=== PATIENT | female | born 1945 | race Caucasian/White ===

== ENCOUNTER 2017-10-02 17:01 | Emergency (ER) | payer MEDICARE, OTHER ==
[2017-10-02] MEDS ORDERED: Albuterol/Ipratropium NEB.SOL* Albuterol 2.5 MG/Ipratropium 0.5 MG 3 ML INH ONE (17:35)
[2017-10-02] MEDS ORDERED: Acetaminophen TAB* 325 MG PO ONE (17:35)
--- NOTE | 2017-10-02 17:46 | ED ---
HPI Cardiac - HPI Summary HPI Summary: Pt here w/ flu-like sx x 5 days. Has had sneezing, coughing, ST, rhinorrhea and ear fullness. Developed fever today. Chest feels tight and heavy since cough has perissted. She has asthma which is typically well controlled. Has tried her flovent but has not tried albuterol yet. Also reports she took 2 advil this morning but fever didn't present until recently. Feels wiped out in general. No baljit SOB but coughing easily which disrupts breathing. Had influenza vaccine this year and has had pneumonia vaccine in the past. Reports she doesn't typically get sick so not sure why she feels this way. No known sick contacts. - History of Current Complaint Chief Complaint: EDGeneral Stated Complaint: COUGH/FEVER Time Seen by Provider: 10/02/17 17:08 Hx Obtained From: Patient, Family/Mincemeat Maker - Pain Intensity: 0 - Allergy/Home Medications Allergies/Adverse Reactions: Allergies Allergy/AdvReac Type Severity Reaction Status Date / Time Penicillins Allergy Rash Verified 12/17/13 14:51 PMH/Surg Hx/FS Hx/Imm Hx Previously Healthy: Yes Endocrine/Hematology History: Denies: Hx Anticoagulant Therapy, Hx Blood Disorders, Hx Thyroid Disease, Hx Anemia, Autoimmune Disease Cardiovascular History: Denies: Hx Congestive Heart Failure, Hx Myocardial Infarction Respiratory History: Reports: Hx Asthma Denies: Hx Chronic Obstructive Pulmonary Disease (COPD) - h/o smoking - quit in GI History: Denies: Hx Cirrhosis, Hx Gastroesophageal Reflux Disease - Cancer History Hx Chemotherapy: No Hx Radiation Therapy: No - Surgical History Surgery Procedure, Year, and Place: HYSTERECTOMY 2011 - Immunization History Immunizations Up to Date: Yes Infectious Disease History: No Infectious Disease History: Denies: Traveled Outside the [place] in Last 30 Days - Family History Known Family History: Positive: None - Social History Occupation: Retired Lives: With Family Alcohol Use: None Hx Substance Use: No Substance Use Type: Reports: None Hx Tobacco Use: Yes - not currently Smoking Status (MU): Former Smoker Review of Systems Positive: Fever, Fatigue Eyes: Negative Negative: Drainage, Erythema Positive: Sore Throat, Ear Ache, Nasal Discharge Cardiovascular: Negative Negative: Palpitations, Chest Pain Positive: Cough Gastrointestinal: Negative Negative: Abdominal Pain, Vomiting, Diarrhea, Nausea Positive: no symptoms reported Negative: Decreased ROM, Edema Skin: Negative Positive: Headache Psychological: Normal All Other Systems Reviewed And Are Negative: Yes Physical Exam Triage Information Reviewed: Yes Vital Signs On Initial Exam: Initial Vitals Temp Pulse Resp BP Pulse Ox 102 F 63 20 149/78 93 10/02/17 17:03 10/02/17 17:03 10/02/17 17:03 10/02/17 17:03 10/02/17 17:03 Vital Signs Reviewed: Yes Appearance: Positive: Well-Nourished, Ill-Appearing - appears mildly fatigued Skin: Positive: Warm, Dry Head/Face: Positive: Normal Head/Face Inspection Eyes: Positive: Normal, EOMI, Conjunctiva Clear. Negative: Conjunctiva Inflammed, Discharge ENT: Positive: Normal ENT inspection, Hearing grossly normal, Pharyngeal erythema - no edema,cobblestoning, Nasal congestion - mild, TMs normal. Negative: Nasal drainage, Tonsillar swelling, Tonsillar exudate Neck: Positive: Supple, Nontender, No Lymphadenopathy Respiratory/Lung Sounds: Positive: Rales, Rhonchi, Wheezes - diffuse -. Negative: Unable to speak in full sentences Cardiovascular: Positive: Normal, RRR, S1, S2 Abdomen Description: Positive: Nontender, No Organomegaly, Soft Bowel Sounds: Positive: Present Musculoskeletal: Positive: Normal, Strength/ROM Intact Neurological: Positive: Normal, Sensory/Motor Intact, Alert, Oriented to Person Place, Time, CN Intact II-III Psychiatric: Positive: Normal - Minier Coma Scale Coma Scale Total: 15 Diagnostics - Vital Signs Vital Signs Temp Pulse Resp BP Pulse Ox 10/02/17 17:25 99.1 F 10/02/17 17:03 102 F 63 20 149/78 93 - Laboratory Lab Statement: Any lab studies that have been ordered have been reviewed, and results considered in the medical decision making process. Re-Evaluation - Re-Evaluation First Eval Change: Improved - pt reports breathing has improved, especially in her upper airway. She is coughing up sputum. Breathing easily, coughing less and pulse ox remains above 95% on room air. She feels jittery after tx but no tachycardia. Chest still has wheezing throughout so discussed starting steroid in conjunction w/ her bronchodilator - she does not want to start this - understands risks and benefits. Also offered a xoponex neb tx to aid in further bronchodilating w/o jittery sensation - she declines this as well. Agrees to use albuterol HFA at home q 4 hours and flovent q 12 hours and NOT to exceed. Explained if she feels worse, needs to return to ED. She agrees and will start zithromax as well. is present and agrees w/ plan. Disposition - Course Course Of Treatment: Pt presents w/ general sx of URI, cough, fatigue. Flu neg. Chest auscultation + for wheezing, rhonchi - pt clinically improved w/ duoneb however wheezing still present. Discussed options seen in eval. Vitals stable. D /c'd home w/ danger s/sx. Discussed w/ Dr. Garcia. - Diagnoses Provider Diagnoses: Bronchitis, Asthma exacerbation Discharge - Discharge Plan Condition: Stable Disposition: HOME Prescriptions: Azithromycin TAB* [Zithromax TAB (Z-GEMMA) 250 mg #6 tabs] 250 mg PO DAILY #4 tab Patient Education Materials: Acute Bronchitis (ED), Bronchospasm (ED) Referrals: Flora Okeefe MD [Primary Care Provider] - Additional Instructions: Rest, stay hydrated and avoid chemical scents/aerosals/smoke/etc. You may try a humidifier and keep air in house at 68F or less. Use albuterol inhaler 2 puffs every 4 hours for the next 24 hours - if breathing is easier after this time, you may reduce to every 6 hours, then every 8 hours, then every 12 hours then as needed only Continue flovent 2 time a day only - do not exceed this dosing. If you are not getting relief with albuterol as directed and flovent as directed, or you develop headache, vomiting, weakness, syncope, abdominal pain, diarrhea, chest pain or shortness of breath, return to the ED. Complete antibiotics as directed It was recommended that you start a steroid to aid in reducing inflammation of your airway which you declined. If you change your mind, please call however if you are worse, it may be recommended that you seek medical attention.
--- NOTE | 2017-10-02 18:21 | RAD ---
INDICATION: Cough, wheezing and fever. COMPARISON: Comparison is made with a prior chest x-ray study from September 09, 2010. TECHNIQUE: Dual-energy PA and lateral views of the chest were obtained. FINDINGS: The heart is within normal limits in size. Mediastinal and hilar contours appear within normal limits. The lungs are clear. No pleural effusion is present. IMPRESSION: NO EVIDENCE FOR ACTIVE CARDIOPULMONARY DISEASE.
[2017-10-02] MEDS ORDERED: Azithromycin TAB* 250 MG PO ONE (18:50)
[2017-10-02 19:19] VITALS: BP 154/64
== END 2017-10-02 19:15 | disposition home or self-care (01) ==
LOC: ED 17:01
DX: J45.901 Unspecified asthma with (acute) exacerbation (principal); J40 Bronchitis, not specified as acute or chronic; Z87.891 Personal history of nicotine dependence
CPT/HCPCS: 71020; 87502; 94640; 99283; A9270-GY

== ENCOUNTER 2019-04-24 15:13 | Emergency (ER) | payer MEDICARE, OTHER ==
[2019-04-24] MEDS ORDERED: Ondansetron ODT TAB* 4 MG PO ONE (15:37)
[2019-04-24] MEDS ORDERED: NS 0.9% 1000 ML** 1,000 ML IV ONE (16:50)
--- NOTE | 2019-04-24 16:54 | ED ---
Head Injury - HPI Summary HPI Summary: 73-year-old female who presents after a ground-level fall. Patient was walking in the kitchen and tripped on cut out stitcher struck left side of her face on the ground. No LOC but reports lightheaded afterwards. Reporting a 6 out of 10 and tension-like headache that radiates behind her eyes. Associated with nausea. No blurred vision or photophobia. Also has a superficial laceration to her right forearm, up-to-date on her tetanus. Patient is not on blood thinners. - History Of Current Complaint Chief Complaint: UCHeadInjury Stated Complaint: LACERATION FACE Time Seen by Provider: 04/24/19 15:28 Pain Intensity: 3 - Allergies/Home Medications Allergies/Adverse Reactions: Allergies Allergy/AdvReac Type Severity Reaction Status Date / Time Penicillins Allergy Rash Verified 04/24/19 15:26 enviromental Allergy Eyes Uncoded 04/24/19 15:26 Itchy/Swollen/Red/Watery Home Medications: Home Medications Letrozole (NF) [Femara (NF)] 2.5 mg PO DAILY 04/24/19 [History Confirmed ] PMH/Surg Hx/FS Hx/Imm Hx Endocrine/Hematology History: Denies: Hx Anticoagulant Therapy, Hx Blood Disorders, Hx Diabetes, Hx Thyroid Disease, Hx Anemia Cardiovascular History: Denies: Hx Congestive Heart Failure, Hx Hypertension, Hx Myocardial Infarction, Hx Pacemaker/ICD Respiratory History: Reports: Hx Asthma Denies: Hx Chronic Obstructive Pulmonary Disease (COPD) - h/o smoking - quit in GI History: Denies: Hx Cirrhosis, Hx Gastroesophageal Reflux Disease History: Denies: Hx Renal Disease Sensory History: Denies: Hx Hearing Aid Psychiatric History: Denies: Hx Panic Disorder - Cancer History Cancer Type, 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 [place] [facility] [place]PLAC[place]. C SECTION Infectious Disease History: No Infectious Disease History: Denies: Traveled Outside the [place] in Last 30 Days - Family History Known Family History: Positive: None - Social History Occupation: Retired Lives: With Family Alcohol Use: Daily Alcohol Amount: 2-3 week Hx Substance Use: No Substance Use Type: Reports: None Hx Tobacco Use: Yes - not currently Smoking Status (MU): Former Smoker Type: Cigarettes Have You Smoked in the Last Year: No Review of Systems Negative: Blurred Vision Cardiovascular: Negative Respiratory: Negative Positive: Nausea Genitourinary: Negative Musculoskeletal: Negative Positive: Other - laceration Positive: Headache All Other Systems Reviewed And Are Negative: Yes Physical Exam - Summary Physical Exam Summary: Constitutional: Well-developed, Well-nourished, Alert, Cooperative Skin: 4 cm area of avulsion to the right forearm, superficial lacerations to the left eyelid HENT: Normocephalic, left periorbital ecchymosis with superficial lacerations to the medial aspect of the eyelid as well as infraorbital area. Midface stable , Dentition intact Eyes: EOM normal, PERRL. vision intact bilaterally no blurred vision. L subconjunctival hemorrhage Neck: Trachea is midline. No stridor; No JVD; No step off; No posterior cervical spine tenderness Cardio: Rhythm regular, rate normal Heart sounds normal; Intact distal pulses; The pedal pulses are 2+ and symmetric. Radial pulses are 2+ and symmetric. Pulmonary/Chest wall: Effort normal; Breath sounds normal; Equal chest rise; No flail segment; No rib tenderness; No sternal tenderness Abd: Soft, Appearance normal. No distension; No tenderness Musculoskeletal: Full ROM and no tenderness at hips, ankles, shoulders, elbows and knees; No joint swelling; No vertebral body tenderness; No paraspinal tenderness; No step off or deformity of the spine; Pelvis is stable to lateral compression and rock Neuro: Alert, Oriented x3, GCS 15. Strength 5/5 all extremities. Psych: Mood and affect Normal Vital Signs On Initial Exam: Initial Vitals Temp Pulse Resp BP Pulse Ox 98.2 F 69 20 195/94 95 04/24/19 15:20 04/24/19 15:20 04/24/19 15:20 04/24/19 15:20 04/24/19 15:20 Diagnostics - Vital Signs Vital Signs Temp Pulse Resp BP Pulse Ox 04/24/19 15:20 98.2 F 69 20 195/94 95 - Laboratory Lab Statement: Any lab studies that have been ordered have been reviewed, and results considered in the medical decision making process. - CT No standard instances CT Interpretation Completed By: Radiologist Summary of CT Findings: Patient Name: NORA LOPEZ Medical Record#: [id number]. Ordering Physician: Stacia Root MD Acct.#: [id number]. : 1945 Age: 73 Sex: F Location: [facility]. Exam Date: 04/24/191535 ADM Status: REG ER. Order Information: CT BRAIN WO. Accession Number: [id number]. CPT: 33142. Indication: Trauma. LEFT eye bruising and bleeding. Comparison: Maxillofacial CT of the same date. Technique: #. Noncontrast CT vertex of skull through foramen magnum. #. CT face. Multiplanar reformation. Report: LEFT proptosis and severe preseptal and postseptal edema/infiltrative hematoma. The LEFT ocular globe is symmetric with the RIGHT. Fracture of the LEFT orbital roof with. up to 0.4 cm cephalad displacement into the anterior cranial fossa no additional fracture. of the LEFT orbital margin is evident. Associated very small volume of LEFT anterior. cranial fossa extra-axial hematoma likely a combination of epidural, subdural as well as a. small amount of subarachnoid hematoma. Potential nondisplaced fracture involving the lateral wall of the LEFT maxillary sinus. Bilateral maxillary sinus mucus retention cysts or polyps. No compelling fluid levels. evident. Intact zygomatic arches, lamina papyracea, nasal bones, base of the maxilla, pterygoid. plates, and mandible. No additional intra or extra-axial intracranial hemorrhage evident. Unremarkable cerebral. sulci, ventricles, and basal cisterns. Negative for mcadams matter white matter obscuration. or mass effect. No fracture of the calvarium evident. Clear mastoid air spaces. Aside from the preseptal. region of the LEFT eye the scalp is unremarkable. IMPRESSION: #. LEFT proptosis and severe preseptal and postseptal edema/infiltrative hematoma. The. LEFT ocular globe is symmetric with the RIGHT without suggestion of rupture. #. Fracture of the LEFT orbital roof with up to 0.4 cm cephalad displacement into the. anterior cranial fossa no additional fracture of the LEFT orbital margin is evident. #. Associated very small volume of LEFT anterior cranial fossa extra- axial hematoma likely. a combination of epidural, subdural as well as a small amount of subarachnoid hematoma. #. No additional intra or extra-axial intracranial hemorrhage evident. Results discussed with Dr. Root 2018 4:45 PM EDT. . <Electronically signed by Cortes Jernigan MD in [place]> 04/24/19 1646. Dictated By: Cortes Jernigan MD. Dictated Date/Time: 04/24/19 1646. Transcribed Date/Time: 04/24/19 1623. This report is only to be considered final once signed by the Provider(s) as displayed in the "<Electronically Signed by >" field (s). Absence of a. signature indicates the report is in a draft status and still needs to be finalized. In the event this document was created by someone other than the. signing Provider, the individual initiating the document will be listed in the "Entered by:" or "Dictated by:" clemons. Patient Name: NORA LOPEZ Medical Record#: [id number]. Ordering Physician: Stacia Root MD Acct.#: [id number]. : 1945 Age: 73 Sex: F Location: [facility]. Exam Date: 04/24/191535 ADM Status: REG ER. Order Information: CT SPINE CERVICAL W/O. Accession Number: [id number]. CPT: 41252. INDICATION: Trauma. COMPARISON: There are no prior studies available for comparison. TECHNIQUE: Contiguous axial sections were obtained from the skull base through the T2. vertebra. Images were reconstructed in the sagittal and coronal planes. FINDINGS: VERTEBRA: There is straightening and reversal of the normal cervical lordosis. No. prevertebral soft tissue swelling or fracture is seen. C2-C3: There is mild posterior uncinate process spurring and hypertrophic changes within. the facet joints. No spinal canal narrowing is seen. There is mild to moderate neural. foraminal narrowing on the right side. C3-C4: There is mild posterior uncinate process spurring. No spinal canal narrowing is. seen. There is mild to moderate bilateral neural foraminal narrowing. C4-C5: There is mild posterior uncinate process spurring. No spinal canal narrowing is. present. There is mild bilateral neural foraminal narrowing. C5-C6: There is mild posterior uncinate process spurring associated with a small central. disc protrusion. There is mild spinal canal narrowing. There is mild to moderate bilateral. neural foraminal narrowing. C6 -C7: There is mild posterior uncinate process spurring. No significant spinal canal. narrowing is present. There is mild to moderate neural foraminal narrowing on the left. side. LUNG APICES: The lung apices appear clear. IMPRESSION: 1. STRAIGHTENING AND REVERSAL OF THE NORMAL CERVICAL LORDOSIS, NO EVIDENCE FOR FRACTURE. 2. MILD TO MODERATE CERVICAL SPONDYLOSIS DESCRIBED. . <Electronically signed by Uvaldo Stack MD in [place]> 04/24/191635. Dictated By: Uvaldo Stack MD. Dictated Date/Time: 04/24/191635. Transcribed Date/Time: 04/24/191625. Copy to: This report is only to be considered final once signed by the Provider(s) as displayed in the "<Electronically Signed by >" field (s). Absence of a. signature indicates the report is in a draft status and still needs to be finalized. In the event this document was created by someone other than the. signing Provider, the individual initiating the document will be listed in the "Entered by:" or "Dictated by:" clemons. 1 of 2. Patient Name: NORA LOPEZ Medical Record#: [id number]. Ordering Physician: Stacia Root MD Acct.#: [id number]. : 1945 Age: 73 Sex: F Location: [facility]. Exam Date: 04/24/19 153 ADM Status: REG ER. Order Information: CT MAXILLOFACIAL W/O. Accession Number: [id number]. CPT: 26268. Indication: Trauma. LEFT eye bruising and bleeding. Comparison: Maxillofacial CT of the same date. Technique: #. Noncontrast CT vertex of skull through foramen magnum. #. CT face. Multiplanar reformation. Report: LEFT proptosis and severe preseptal and postseptal edema/infiltrative hematoma. The LEFT ocular globe is symmetric with the RIGHT. Fracture of the LEFT orbital roof with. up to 0.4 cm cephalad displacement into the anterior cranial fossa no additional fracture. of the LEFT orbital margin is evident. Associated very small volume of LEFT anterior. cranial fossa extra-axial hematoma likely a combination of epidural, subdural as well as a. small amount of subarachnoid hematoma. Potential nondisplaced fracture involving the lateral wall of the LEFT maxillary sinus. Bilateral maxillary sinus mucus retention cysts or polyps. No compelling fluid levels. evident. Intact zygomatic arches, lamina papyracea, nasal bones, base of the maxilla, pterygoid. plates, and mandible. No additional intra or extra-axial intracranial hemorrhage evident. Unremarkable cerebral. sulci, ventricles, and basal cisterns. Negative for mcadams matter white matter obscuration. or mass effect. No fracture of the calvarium evident. Clear mastoid air spaces. Aside from the preseptal. region of the LEFT eye the scalp is unremarkable. IMPRESSION: #. LEFT proptosis and severe preseptal and postseptal edema/infiltrative hematoma. The. LEFT ocular globe is symmetric with the RIGHT without suggestion of rupture. #. Fracture of the LEFT orbital roof with up to 0.4 cm cephalad displacement into the. anterior cranial fossa no additional fracture of the LEFT orbital margin is evident. #. Associated very small volume of LEFT anterior cranial fossa extra-axial hematoma likely. a combination of epidural, subdural as well as a small amount of subarachnoid hematoma. #. No additional intra or extra-axial intracranial hemorrhage evident. Results discussed with Dr. Root 04/24/2019 4:45 PM EDT. . < Electronically signed by Cortes Jernigan MD in [place]> 04/24/19 4971. Dictated By : Cortes Jernigan MD. Dictated Date/Time: 04/24/19 8726. Transcribed Date/ Time: 04/24/19 0653. This report is only to be considered final once signed by the Provider(s) as displayed in the "<Electronically Signed by >" field (s). Absence of a. signature indicates the report is in a draft status and still needs to be finalized. In the event this document was created by someone other than the. signing Provider, the individual initiating the document will be listed in the "Entered by:" or "Dictated by:" clemons. 1 of 2. 1 of 2 Re-Evaluation - Re-Evaluation First Eval Comment: CT head w SAH/SDH and orbital blow out fr plan for transfer to [facility] as per patient preference. Second Eval Comment: Patient accepted as transfer to [facility] under Dr. Bajwa. IV access established given 1 L of fluids as well as 2 of morphine and 4 of Zofran blood pressure on transfer was 180 systolic. C Spine Clearance Note. Patient was evaluated today for clearance of C-spine precautions. Patient was awake and alert and cooperative for exam. Patient without neurologic symptoms or neck pain. Patient did not exhibit any focal tenderness to direct palpation of the cervical spine. Patient was able to move head in all directions without limitation in the range of motion or without inciting additional pain or discomfort. No midline tenderness. Denies pain, weakness or numbness with flexion, extension, or rotation of the neck. [place] collar removed. C-collar cleared by [employer]. Based on this examination, C-spine precautions are no longer required and may be discontinued. Head Injury Course/Dx Course Of Treatment: 73 y/o F p/w GLF and striking her L eyebrow. - VSS NAD. - PE with L periorbital hematoma, EOMI no e/o entrapment on exam. No Cspine TTP on exam. GCS 15. avulsion injury to L forearm w/o underlying TTP. - Check b/f/ cspine CT. Zofran for nausea. No e/o ocular injury. - BP elevated suspect 2/2 headache/pain, will recheck prior to transfer - Diagnoses Provider Diagnoses: SAH (subarachnoid hemorrhage), Orbital roof fracture, Fall from ground level - Physician Notifications Instructed by Provider To: Transfer - to [facility] ED Reason For Transfer: Specialty or service [place] available [place] [facility] [place] [facility] [place] - Critical Care Time Critical Care Time: 30-74 min Discharge - Sign-Out/Discharge Documenting (check all that apply): Patient Departure All imaging exams completed and their final reports reviewed: Yes - Discharge Plan Condition: Fair Disposition: TRANS HIGHER LVL OF CARE FAC Referrals: Flora Okeefe MD [Primary Care Provider] - - Billing Disposition and Condition Condition: FAIR Disposition: Trans Higher Lvl of Care Fac
[2019-04-24 17:14] VITALS: BP 180/82
[2019-04-24] MEDS ORDERED: Ondansetron INJ* 2 MG/ML VIAL IV ONE (17:27)
[2019-04-24] MEDS ORDERED: Morphine 10 MG/ML VIAL (1 ml) IV ONE (17:28)
== END 2019-04-24 17:42 | disposition short-term general hospital (02) ==
LOC: UCEAST 15:13
DX: S06.6X0A Traumatic subarachnoid hemorrhage without loss of consciousness, initial encounter (principal); S02.19XA Other fracture of base of skull, initial encounter for closed fracture; W01.0XXA Fall on same level from slipping, tripping and stumbling without subsequent striking against object, initial encounter; Y92.010 Kitchen of single-family (private) house as the place of occurrence of the external cause; J45.909 Unspecified asthma, uncomplicated; Z87.891 Personal history of nicotine dependence; Z88.0 Allergy status to penicillin
CPT/HCPCS: 70450; 70486; 72125; 99213; A9270-GY; G0463; J2270; J2405

== ENCOUNTER 2019-12-30 05:48 | Day surgery (SDC) | payer MEDICARE, OTHER ==
--- NOTE | 2019-12-26 15:04 | HP ---
CC: Dr. Flora Okeefe * HISTORY AND PHYSICAL: DATE OF PLANNED ADMISSION AND SURGERY: 12/30/19 HISTORY OF PRESENT ILLNESS: Mrs. Crocker is a 74-year-old white female who is admitted with a large solid tumor of the anterior bladder wall and a small filling defect in the area of the right renal pelvis for cystoscopy, right retrograde pyelography and transurethral resection of bladder tumor. Mrs. Crocker was referred to my office by Dr. Okeefe because of recurrent episodes for gross painless hematuria that started about 2 months ago. Some of the episodes were associated with some urgency and frequency. She was tried on a course of antibiotic without any improvement in her symptoms. Because of the persistent episodes of gross hematuria, the patient was evaluated in my office. She had a CT urogram which showed a subtle filling defect in the right renal pelvis measuring less than 1 cm in size. That filling defect was noted only on 1 transverse cut in the arterial phase of the CT but was not subsequently seen on the venous phase or in the coronal cuts. I discussed that finding with Dr. Beltran, the radiologist to interpreted the films and he felt that it is a soft finding, however, considering urothelial disease, he felt it might be clinically significant. The CT urogram also showed irregularity and a mass in the anterior wall of the bladder. There was no evidence of gross extension of the mass outside the bladder wall into the perivesical fat and there was no lymphadenopathy or evidence of metastatic disease. The ureters and the collecting system looked otherwise normal. The patient then had a cystoscopy in my office which showed a 3 to 4 cm solid mass arising from the anterior bladder wall. The mass had the gross appearance of poorly differentiated bladder tumor. No other bladder lesions were seen. 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 She was treated with lumpectomy followed by chemotherapy and radiation therapy and has been maintained on letrozole 2.5 mg daily. She has had no evidence of recurrent disease. The patient has asthma and maintained on Ventolin and on Breo. She is on Zoloft for depression. She is on vitamins and supplements. She is on no anticoagulation. She reports being allergic to penicillin which gives her a rash. She was a smoker of 1 pack per day for 25 years and she stopped in 1986. No recreational drug use. Mental health history relevant for depression for which she is maintained on Zoloft. FAMILY HISTORY: Relevant for COPD in both her parents who were chronic smokers. No history of renal or bladder tumors. PHYSICAL EXAMINATION GENERAL: Moderately overweight white female, who looks her age. VITAL SIGNS: Blood pressure 110/60, pulse of 70. LUNGS: Clear. HEART: Regular and rhythmic. No murmurs. ABDOMEN: Soft. No masses, no tenderness, and no CVA tenderness. : Pelvic examination done at the time of the cystoscopy showed no pelvic masses. IMPRESSION: 1- Recurrent episodes of gross hematuria with a rather large solid mass arising from the anterior bladder wall suspicious for high grade invasive bladder tumor. 2- Subtle finding of a subcentimeter filling defect in the right renal pelvis that could be artifactual as it was noted only on one cut in the arterial phase of the CT. PLAN: Plan is for cystoscopy, right retrograde pyelography for better visualization of the right renal pelvis, then transurethral resection of the bladder tumor. I discussed the procedures in detail with the patient. Some of the potential complications including risk of anterior bladder perforation because of the location of the tumor, possible need to have a Hui catheter placement, hematuria and infection. The patient also understands that she will need additional treatments based on the pathology of her bladder tumor. All her questions were answered. [id number]/[facility] #: [id number] ALEE
[~2019-12-30 05:48] MED LIST: Buffered Lidocaine 1% SYRIN* 1 ML/SYRINGE INTRADERM ONE
[2019-12-30] MEDS ORDERED: Lactated Ringers 1000 ML Bag* 1,000 ML IV SCH (06:00)
[2019-12-30] MEDS ORDERED: Levofloxacin 750 MG IVPREMIX(* 750 MG/150 ML BAG ONE (06:58)
[2019-12-30] MEDS ORDERED: fentaNYL* 50 MCG/ML 2 ML VIAL (100 MCG VIAL) ONE (07:03)
[2019-12-30] MEDS ORDERED: Naloxone* 0.4 MG/ML 1 ML VIAL IV PRN (07:23)
[2019-12-30] MEDS ORDERED: HYDROmorphone INJ1* 1 MG/ML SYRINGE IV PRN (07:23)
[2019-12-30] MEDS ORDERED: Iohexol 180 (CONTRAST) 10 ML SDV IV ONE (07:41)
[2019-12-30 10:40] VITALS: BP 147/76
--- NOTE | 2019-12-30 11:18 | OP ---
CC: Dr. Flora Okeefe * DATE OF OPERATION: 12/30/19 - [facility] DATE OF : 49 SURGEON: Eric Stallworth MD ANESTHESIOLOGIST: Dr. Dockery ANESTHESIA: General. PRE-OP DIAGNOSES: 1. Bladder tumor, anterior bladder wall. 2. Questionable subtle filling defect in the right renal pelvis. POST-OP DIAGNOSIS: High-grade bladder tumor, anterior bladder wall. OPERATIVE PROCEDURE: 1. Cystoscopy. 2. Right retrograde pyelography. 3. Transurethral resection of bladder tumor (anterior wall, 3 cm). INDICATION FOR PROCEDURE: Ms. Crocker is a 74-year-old white female who has been having recurrent episodes of gross painless hematuria for 1 month. She gives past history of chronic smoking. CT urogram showed a mass in the anterior bladder wall, and a subtle sub-centimeter filling defect in the right renal pelvis seen only on one of multiple cuts and sections. Office cystoscopy showed a 3 to 4 cm solid mass arising from the anterior bladder wall. Because of the above history and the cystoscopy and the CT findings, the patient is brought in for the above procedures. PATHOLOGY AT CYSTOSCOPY: The bladder neck looked normal. The ureteral orifices looked normal. There was a 3 to 4 cm solid mass rising from the anterior bladder wall. The mass was nonpapillary, was minimally vascular. Upon resection of the tumor, it was solid and seemed deeply invasive. Right retrograde pyelography showed normal-looking ureter. The renal pelvis could not be well visualized as it was not dilated and there was some extravasation of contrast after the injection of contrast. Because the finding on the CT was subtle and because of the associated high-grade looking bladder tumor, it was decided not to perform a ureteroscopy to avoid possible contamination of the upper tract with tumor cells. DESCRIPTION OF PROCEDURE: After successful general anesthesia, the patient was placed in the lithotomy position and was prepped and draped for cystoscopy. Cystoscopy was performed. The bladder was carefully inspected and the above findings were noted. A flexible tip guidewire was introduced into the right ureteral orifice and an open-ended catheter was fed on top of it. Retrograde pyelography was then performed and the above findings were noted. The cystoscope was then removed and the resectoscope was introduced inside the bladder. The tumor in the anterior bladder wall was then resected down to muscle. Care was taken not to perforate the bladder wall because of its anterior location. Muscle fibers were seen at the bottom of the resection indicating good sampling of the tumor. The tumor, however, seemed to be fairly invasive and I was concerned that the anterior bladder wall will be perforated if the whole tumor is resected deep. There was likely residual tumor left in the deeper layer of the resection. The bladder was then irrigated and all the resected tissue was evacuated and sent for pathology. Extensive fulguration was then performed achieving very good hemostasis. Careful inspection showed no evidence of bladder perforation. A size 18-[place] Hui catheter was then placed in side the bladder. Bimanual examination was performed showing no pelvic masses and no solid masses could be felt in the bladder wall. The patient tolerated the procedures well and left the operating room in good condition. The blood loss was negligible. The specimen was bladder tumor. The plan is to observe the patient in the recovery room and if the urine remains clear, the Hui catheter would be removed before her discharge. Because of the high-grade and invasive appearance of the bladder tumor, mitomycin C will not be given in the recovery room. [id number]/[facility] #: [id number] [facility]
== END 2019-12-30 10:40 | disposition home or self-care (01) ==
LOC: OR 05:48
PROVIDERS: ATTEND Urology
DX: C67.3 Malignant neoplasm of anterior wall of bladder (principal); R31.0 Gross hematuria; Z85.3 Personal history of malignant neoplasm of breast; Z87.891 Personal history of nicotine dependence; F32.9 Major depressive disorder, single episode, unspecified; J45.909 Unspecified asthma, uncomplicated
CPT/HCPCS: 74018; 74420; 88305; J3010